=== PATIENT | female | born 1995 | race Caucasian/White ===

== ENCOUNTER 2022-02-27 06:23 | Emergency (ER) | payer OTHER ==
[2022-02-27] MEDS ORDERED: Diazepam 10 MG/2 ML SYRINGE ONE (06:41)
[2022-02-27] MEDS ORDERED: Ketorolac Tromethamine 30 MG/ML VIAL ONE (06:41)
== END 2022-02-27 08:05 | disposition home or self-care (01) ==
LOC: ERS 06:23
DX: M54.50 Low back pain, unspecified (principal)
CPT/HCPCS: 72100; 96372; J1885; J3360

== ENCOUNTER 2023-02-28 22:41 | Emergency (ER) | payer BC | END 2023-03-01 02:22 | disposition home or self-care (01) | LOC: ERS 22:41 | DX: T19.2XXA Foreign body in vulva and vagina, initial encounter (principal) | CPT/HCPCS: 99283 ==

== ENCOUNTER 2023-05-15 18:28 | Emergency (ER) | payer OTHER, BC | END 2023-05-15 19:35 | disposition left against medical advice (07) | LOC: ERS 18:28 | DX: Z53.21 Procedure and treatment not carried out due to patient leaving prior to being seen by health care provider (principal) ==

== ENCOUNTER 2023-08-30 03:11 | Emergency (ER) | payer BC, OTHER ==
[2023-08-30] MEDS ORDERED: Loratadine 10 MG TAB PO SCH (04:30)
[2023-08-30] MEDS ORDERED: Ibuprofen 800 MG TAB PO SCH (04:30)
[2023-08-30 05:38] LABS: SARS-CoV-2 NAA Rapid Test Not Detected (NotDetected)
== END 2023-08-30 06:47 | disposition home or self-care (01) ==
LOC: ERS 03:11
DX: J30.9 Allergic rhinitis, unspecified (principal)
CPT/HCPCS: 71045

== ENCOUNTER 2023-12-30 22:01 | Emergency (ER) | payer BC, OTHER | END 2023-12-31 01:23 | disposition home or self-care (01) | LOC: ERS 22:01 | DX: M79.674 Pain in right toe(s) (principal) ==

== ENCOUNTER 2024-02-05 16:58 | Emergency (ER) | payer BC | END 2024-02-05 19:38 | disposition home or self-care (01) | LOC: ERS 16:58 | DX: R53.83 Other fatigue (principal) | CPT/HCPCS: 36415; 80053; 81001; 81025; 83735; 84443; 85025; 93005 ==

== ENCOUNTER 2024-06-07 18:36 | Emergency (ER) | payer BC ==
[2024-06-07 19:55] LABS: #Basophils 0.04 10x3/uL (0.0-0.2); %Basophils 0.6 % (0.0-1.0); %Eosinophils 3.4 % (0.0-10.0); %Lymphocytes 31.5 % (21.0-51.0); %Neutrophils 58.2 % (42.0-75.0); Hematocrit 36.5 % (36.0-47.0); Hemoglobin 12.2 g/dL (12.0-16.0); Mean Corpuscular HGB CONC 33.4 g/dL (32.0-36.0); Mean Corpuscular Hemoglobin 28.5 pg (27.0-31.0); Mean Corpuscular Volume 85.3 fL (78.0-98.0); Mean Platelet Volume 11.2 fL (7.4-10.4); Platelet Count 299 10x3/uL (130-400); RBC Distribution Width 14.4 % (11.5-14.5); Red Blood Cell (RBC) Count 4.28 mill/uL (4.20-5.40)
[2024-06-07 20:10] LABS: BHCG - Serum Negative (NEGATIVE); Pregs Control Background? CLEAR/WHITE (CLR/WHITE); Pregs Control Bar Appear? YES (CONTROL BAR)
[2024-06-07 20:16] LABS: ALT (SGPT) 10 U/L (8-55); AST (SGOT) 14 U/L (5-34); Albumin 3.6 g/dL (3.5-5.0); Alkaline Phosphatase 68 U/L (40-110); Anion Gap 12 mmol/L (10-20); BUN (Urea Nitrogen) 11 mg/dL (7.0-18.7); Bilirubin, Total 0.3 mg/dL (0.2-1.2); Calc. Creatinine Clearance 0 mL/min (70-130); Calcium 8.9 mg/dL (7.8-10.44); Carbon Dioxide 20 mmol/L (22-29); Chloride 110 mmol/L (98-107); Estimated GFR 93; Globulin 3.5 g/dL (2.4-3.5); Glucose 135 mg/dL (70-105); Magnesium 1.9 mg/dL (1.6-2.6); Potassium 3.4 mmol/L (3.5-5.1); Protein, Total 7.1 g/dL (6.0-8.3); Sodium 139 mmol/L (136-145)
[2024-06-07 20:20] LABS: Troponin I Less than 0.010 ng/mL (< 0.028)
[2024-06-07] MEDS ORDERED: NS 0.9% w/ 20 MEQ KCL 1,000 ML ONE (21:24)
[2024-06-07 21:25] LABS: Bacteria/HPF None Seen HPF (None Seen); Bilirubin Negative (Negative); Blood, Urine Negative (Negative); CAUTI Indications for Culture Pelvic or flank pain; Clarity Clear (Clear); Glucose, Urine (Dipstick) Normal (Negative); Ketone, Urine Negative (Negative); Leukocyte Negative Leu/uL (Negative); Nitrite Negative (Negative); Protein, Urine (Dipstick) Negative (Neg-Trace); RBC/HPF 0-3 HPF (0-3); Specific Gravity, Urine 1.013 (1.002-1.036); Squamous Epithelial 0-3 HPF (0-3); Urobilinogen Normal mg/dL (Less than 2); WBC/HPF 0-3 HPF (0-3)
[2024-06-07 21:30] LABS: Urine Culture Reflex No No
[2024-06-07 21:52] LABS: Amphetamine Not Detected (NotDetected); Barbiturates Screen Not Detected (NotDetected); Benzodiazepine Screen Not Detected (NotDetected); Cocaine Metabolite Screen Not Detected (NotDetected); Methadone Not Detected (NotDetected); Methamphetamine Not Detected (NotDetected); Opiate Screen Not Detected (NotDetected); Oxycodone Screen Not Detected (NotDetected); Phencyclidine (PCP) Not Detected (NotDetected); THC/Cannabinoid Screen Not Detected (NotDetected); Tricyclic Screen Not Detected (NotDetected)
== END 2024-06-08 01:05 | disposition home or self-care (01) ==
LOC: ERS 18:36
DX: R00.0 Tachycardia, unspecified (principal); R00.1 Bradycardia, unspecified; R00.2 Palpitations; R53.1 Weakness
CPT/HCPCS: 36415; 71045; 80053; 80306; 81001; 83605; 83735; 84443; 84484; 84703; 85025; 85379; 87428; 93005; J3480

== ENCOUNTER 2024-06-09 19:23 | Inpatient (IN) | payer BC ==
[~2024-06-09 19:23] MED LIST: Iopamidol-370 76% 500 ML MDV (1 ML CHARGE) ONE
[2024-06-09] MEDS ORDERED: Magnesium 2 GM/50 ML BAG (IN WATER) ONE (20:10)
[2024-06-09 20:29] LABS: Actual Bicarbonate (HCO3v) 26.2 mEq/L (22-28); Base Excess 0.5 mEq/L (-2.0 to +3.0); Calcium, Ionized (venous) 1.12 mmol/L (1.16-1.32); Chloride (VBG) 102 mmol/L (98-106); Hematocrit-VBG 39 % (36.0-47.0); Hemoglobin (Hb) 13.1 g/dL (11.7-15.5); Potassium (VBG) 3.52 mmol/L (3.70-5.30); Sodium 139 mmol/L (133-146)
[2024-06-09 20:37] LABS: #Basophils 0.06 10x3/uL (0.0-0.2); %Basophils 0.8 % (0.0-1.0); %Eosinophils 3.7 % (0.0-10.0); %Monocytes 5.8 % (0.0-10.0); %Neutrophils 51.4 % (42.0-75.0); Hematocrit 36.3 % (36.0-47.0); Hemoglobin 12.2 g/dL (12.0-16.0); Mean Corpuscular HGB CONC 33.6 g/dL (32.0-36.0); Mean Corpuscular Hemoglobin 28.7 pg (27.0-31.0); Mean Corpuscular Volume 85.4 fL (78.0-98.0); Mean Platelet Volume 10.7 fL (7.4-10.4); Platelet Count 299 10x3/uL (130-400); RBC Distribution Width 14.4 % (11.5-14.5); Red Blood Cell (RBC) Count 4.25 mill/uL (4.20-5.40)
[2024-06-09 20:52] LABS: ALT (SGPT) 10 U/L (8-55); AST (SGOT) 14 U/L (5-34); Albumin 3.8 g/dL (3.5-5.0); Alkaline Phosphatase 66 U/L (40-110); Anion Gap 12 mmol/L (10-20); BUN (Urea Nitrogen) 15 mg/dL (7.0-18.7); Bilirubin, Total 0.2 mg/dL (0.2-1.2); Calc. Creatinine Clearance 0 mL/min (70-130); Calcium 8.8 mg/dL (7.8-10.44); Carbon Dioxide 24 mmol/L (22-29); Chloride 105 mmol/L (98-107); Estimated GFR 103; Globulin 3.6 g/dL (2.4-3.5); Glucose 78 mg/dL (70-105); Magnesium 1.9 mg/dL (1.6-2.6); Potassium 3.4 mmol/L (3.5-5.1); Protein, Total 7.4 g/dL (6.0-8.3); Sodium 138 mmol/L (136-145)
[2024-06-09 20:56] LABS: Troponin I Less than 0.010 ng/mL (< 0.028)
[2024-06-09] MEDS ORDERED: Potassium Chloride 20 MEQ TAB ONE (21:37)
[2024-06-09] MEDS ORDERED: Sodium Chloride 0.9% 100 ML ONE (21:54)
[2024-06-09] MEDS ORDERED: Enoxaparin 30 MG (0.3 mL) SYRINGE ONE (21:54)
[2024-06-09] MEDS ORDERED: Azithromycin 500 MG VIAL ONE (21:54)
[2024-06-09] MEDS ORDERED: cefTRIAXone (ROCEPHIN) 1 GM VIAL ONE (21:54)
[2024-06-09] MEDS ORDERED: Enoxaparin 100 MG (1 mL) SYRINGE ONE (21:54)
[2024-06-09] MEDS ORDERED: Ondansetron PF 4 MG/2 ML Vial IVP PRN (22:45)
[2024-06-09] MEDS ORDERED: Acetaminophen 325 MG TAB PO PRN (22:45)
[2024-06-10 00:04] VITALS: BMI 32.9
[2024-06-10] MEDS: hydrOXYzine 25 MG TAB PO SCH (01:47)
[2024-06-10 05:44] LABS: #Basophils 0.05 10x3/uL (0.0-0.2); %Basophils 0.7 % (0.0-1.0); %Eosinophils 3.5 % (0.0-10.0); %Lymphocytes 44.4 % (21.0-51.0); %Monocytes 6.3 % (0.0-10.0); %Neutrophils 44.7 % (42.0-75.0); Hematocrit 34.7 % (36.0-47.0); Hemoglobin 11.3 g/dL (12.0-16.0); Mean Corpuscular HGB CONC 32.6 g/dL (32.0-36.0); Mean Corpuscular Hemoglobin 28.1 pg (27.0-31.0); Mean Corpuscular Volume 86.3 fL (78.0-98.0); Mean Platelet Volume 11.1 fL (7.4-10.4); Platelet Count 268 10x3/uL (130-400); RBC Distribution Width 14.3 % (11.5-14.5); Red Blood Cell (RBC) Count 4.02 mill/uL (4.20-5.40)
[2024-06-10 06:12] LABS: Anion Gap 10 mmol/L (10-20); BUN (Urea Nitrogen) 13 mg/dL (7.0-18.7); Calc. Creatinine Clearance 186 mL/min (70-130); Calcium 8.3 mg/dL (7.8-10.44); Carbon Dioxide 22 mmol/L (22-29); Chloride 110 mmol/L (98-107); Estimated GFR 113; Glucose 88 mg/dL (70-105); Magnesium 2.3 mg/dL (1.6-2.6); Potassium 3.9 mmol/L (3.5-5.1); Sodium 138 mmol/L (136-145)
[2024-06-10 07:53] LABS: Legionella Urinary Ag Negative (Negative); Strep pneumo Urine Ag NEGATIVE (NEGATIVE)
[2024-06-10] MEDS ORDERED: FLU (Fluarix Triv) TS24-25(6MOS UP)/PF 45 MCG/0.5 ML Syringe IM ONE (09:00)
[2024-06-10] MEDS: Enoxaparin 100 MG (1 mL) SYRINGE SC SCH (09:15)
[2024-06-10] MEDS ORDERED: Albuterol 2.5 MG (3 mL) NEB NEB PRN (12:12)
[2024-06-10] MEDS: cefTRIAXone\\ROCEPHIN 1 GM in Sodium Chloride 0.9% 100 ML IVPB SCH (21:57)
[2024-06-10] MEDS: Doxycycline 100 MG CAP PO SCH (21:57)
[2024-06-10] MEDS: Melatonin 3 MG TAB PO PRN (21:57)
[2024-06-10] MEDS: ALPRAZolam 0.25 MG TAB PO PRN (21:57)
[2024-06-11 05:37] LABS: #Basophils 0.04 10x3/uL (0.0-0.2); %Basophils 0.6 % (0.0-1.0); %Neutrophils 45.3 % (42.0-75.0); Hematocrit 36.2 % (36.0-47.0); Mean Corpuscular HGB CONC 33.1 g/dL (32.0-36.0); Mean Corpuscular Hemoglobin 28.3 pg (27.0-31.0); Mean Corpuscular Volume 85.4 fL (78.0-98.0); Mean Platelet Volume 10.9 fL (7.4-10.4); Platelet Count 287 10x3/uL (130-400); RBC Distribution Width 14.4 % (11.5-14.5); Red Blood Cell (RBC) Count 4.24 mill/uL (4.20-5.40)
[2024-06-11 06:09] LABS: Anion Gap 12 mmol/L (10-20); BUN (Urea Nitrogen) 16 mg/dL (7.0-18.7); Calc. Creatinine Clearance 174 mL/min (70-130); Calcium 8.4 mg/dL (7.8-10.44); Carbon Dioxide 22 mmol/L (22-29); Chloride 105 mmol/L (98-107); Estimated GFR 104; Glucose 90 mg/dL (70-105); Potassium 3.9 mmol/L (3.5-5.1); Sodium 135 mmol/L (136-145)
[2024-06-11] MEDS: Apixaban 5 MG TAB PO SCH (09:22)
[2024-06-11 12:06] VITALS: BP 119/71; TEMP 98.1
[2024-06-11] MEDS ORDERED: Apixaban 5 MG TAB PO SCH (21:00)
[2024-06-11] MEDS ORDERED: Enoxaparin 40 MG (0.4 mL) SYRINGE SC SCH (21:00)
[2024-06-13 12:30] LABS: ANA Symphony (Qualitative) Negative (Negative); ANA Symphony (Quantitative) 0.2 Ratio (< 0.7 Negative); dsDNA IgG Antibody 1.7 IU/mL (<10 Negative)
[2024-06-13 15:17] LABS: Cytoplasmic (C-ANCA) <1:20 titer (Neg:<1:20); Perinuclear (P-ANCA) <1:20 titer (Neg:<1:20)
== END 2024-06-11 14:39 | disposition home or self-care (01) | DRG 313 ==
LOC: ERS 19:23 → OBS 22:36 → OBSVTOIN 06-10 12:11
PROVIDERS: ADMIT Internal Medicine; ATTEND Hospitalist
DX: R07.89 Other chest pain (principal); D50.9 Iron deficiency anemia, unspecified; F41.9 Anxiety disorder, unspecified; K21.9 Gastro-esophageal reflux disease without esophagitis; E66.9 Obesity, unspecified; Z98.890 Other specified postprocedural states; Z68.32 Body mass index [BMI] 32.0-32.9, adult
CPT/HCPCS: 36415; 71045; 71275; 78451; 80048; 80053; 80306; 81001; 82805; 83605; 83735; 83880; 84145; 84443; 84484; 84702; 84703; 85025; 85379; 86037; 86038; 86225; 87040; 87428; 87449; 87899; 90656; 93005; 93010; 93306; 93970; 96365; 96366; 96367; 96375; A9540; G0378; J0456; J0696; J1650; J3475; J3480; Q9967

== ENCOUNTER 2025-07-05 15:43 | Emergency (ER) | payer BC ==
[~2025-07-05 15:43] MED LIST changes: +Iopamidol 370 76% 100 ML VIAL ONE; -Iopamidol-370 76% 500 ML MDV (1 ML CHARGE) ONE
[2025-07-05 16:13] LABS: #Basophils 0.05 10x3/uL (0.0-0.2); #Eosinophils 0.14 10x3/uL (0.0-0.7); #Monocytes 0.46 10x3/uL (0.11-0.59); #Neutrophils 3.95 10x3/uL (1.40-6.50); %Basophils 0.7 % (0.0-1.0); %Eosinophils 2.0 % (0.0-10.0); %Lymphocytes 35.2 % (21.0-51.0); %Monocytes 6.5 % (0.0-10.0); %Neutrophils 55.3 % (42.0-75.0); Hematocrit 35.5 % (36.0-47.0); Hemoglobin 11.6 g/dL (12.0-16.0); Mean Corpuscular Hemoglobin 28.9 pg (27.0-31.0); Mean Corpuscular Volume 88.5 fL (78.0-98.0); Platelet Count 290 10x3/uL (130-400); Red Blood Cell (RBC) Count 4.01 mill/uL (4.20-5.40); White Blood Cell (WBC) Count 7.13 10x3/uL (4.8-10.8)
[2025-07-05 16:24] LABS: BHCG - Serum Negative (NEGATIVE); Pregs Control Background? CLEAR/WHITE (CLR/WHITE); Pregs Control Bar Appear? YES (CONTROL BAR)
[2025-07-05 16:29] LABS: ALT (SGPT) 11 U/L (Less than 34); AST (SGOT) 20 U/L (11-34); Albumin 3.9 g/dL (3.1-4.5); Alkaline Phosphatase 82 U/L (40-110); Anion Gap 14 mmol/L (10-20); BUN (Urea Nitrogen) 14 mg/dL (7.0-18.7); Bilirubin, Total 0.4 mg/dL (0.3-1.2); Calc. Creatinine Clearance 0 mL/min (70-130); Calcium 8.3 mg/dL (7.8-10.44); Carbon Dioxide 22 mmol/L (22-29); Chloride 106 mmol/L (98-107); Globulin 3.2 g/dL (2.4-3.5); Glucose 122 mg/dL (70-105); Potassium 3.7 mmol/L (3.5-5.1); Sodium 138 mmol/L (136-145)
== END 2025-07-05 18:50 | disposition home or self-care (01) ==
LOC: ERS 15:43
DX: R55 Syncope and collapse (principal); K44.9 Diaphragmatic hernia without obstruction or gangrene; D64.9 Anemia, unspecified
CPT/HCPCS: 71275; 80053; 83880; 84484; 84703; 85025; 85379; 93005; 96360; 96361; Q9967